=== PATIENT | male | born 1990 | race Caucasian/White ===

== ENCOUNTER 2022-08-28 20:43 | Emergency (ER) | payer MEDICAID ==
[2022-08-28] MEDS ORDERED: Lactated Ringers 1,000 ML IV ONE (21:08)
[2022-08-28 21:24] LABS: BASOPHILS ABSOLUTE AUTO 0.04 K/mm3 (0.01-0.08); BASOPHILS PERCENT AUTO 0.3 % (0.1-1.2); EOSINOPHILS ABSOLUTE AUTO 0.23 K/mm3 (0.04-0.54); HEMATOCRIT 47.6 % (40.1-51.0); HEMOGLOBIN 16.1 gm/dl (13.7-17.5); IMMATURE GRAN ABSOLUTE AUTO 0.05 K/mm3 (0.00-0.10); IMMATURE GRAN PERCENT AUTO 0.4 % (<=1.0); LYMPHOCYTES ABSOLUTE AUTO 2.15 K/mm3 (1.32-3.57); LYMPHOCYTES PERCENT AUTO 18.7 % (21.8-53.1); MEAN CORPUSCULAR HEMOGLOBIN 29.7 pg (25.7-32.2); MEAN CORPUSCULAR HGB CONC 33.8 g/dl (32.2-35.5); MEAN CORPUSCULAR VOLUME 87.7 fl (79.0-92.2); MONOCYTES ABSOLUTE AUTO 1.29 K/mm3 (0.30-0.82); MONOCYTES PERCENT AUTO 11.2 % (5.3-12.2); NEUTROPHILS ABSOLUTE AUTO 7.76 K/mm3 (1.78-5.38); NEUTROPHILS PERCENT AUTO 67.4 % (34.0-67.9); PLATELET COUNT,PLT 224 K/mm3 (163-337); RED BLOOD CELL COUNT 5.43 M/mm3 (4.63-6.08); WHITE BLOOD CELL COUNT,WBC 11.52 K/mm3 (4.23-9.07)
[2022-08-28 21:51] LABS: ALANINE AMINOTRANSFERASE,ALT 28 U/L (16-63); ALBUMIN 3.4 g/dl (3.4-5.0); ALKALINE PHOSPHATASE 51 U/L (46-116); ANION GAP 10.1 (5-15); ASPARTATE AMNIOTRANSFERASE,AST 21 U/L (15-37); BILIRUBIN TOTAL 0.4 mg/dL (0.2-1.0); BLOOD UREA NITROGEN,BUN 8 mg/dL (7-18); CALCIUM 8.2 mg/dL (8.5-10.1); CARBON DIOXIDE,CO2 28 mEq/L (21-32); CHLORIDE,CL 102 mEq/L (98-107); ESTIMATED GFR 104 mL/min (>60); GLUCOSE RANDOM 121 mg/dL (70-99); MAGNESIUM 1.4 mg/dL (1.8-2.4); POTASSIUM,K 4.1 mEq/L (3.5-5.1); PROTEIN TOTAL,TP 6.7 g/dl (6.4-8.2); SODIUM,NA 136 mEq/L (136-145); TSH 1.482 uIU/mL (0.358-3.74)
[2022-08-28 21:54] LABS: C-REACTIVE PROTEIN < 0.2 mg/dL (<1.0)
[2022-08-28 22:51] LABS: APPEARANCE,URINE CLEAR (Clear); BILIRUBIN,URINE NEGATIVE (Negative); COLOR,URINE YELLOW (Yellow); GLUCOSE,URINE NEGATIVE (Negative); KETONES,URINE NEGATIVE (Negative); LEUKOCYTE ESTERASE,URINE NEGATIVE (Negative); NITRITE,URINE NEGATIVE (Negative); OCCULT BLOOD,URINE NEGATIVE (Negative); PROTEIN,URINE NEGATIVE (Negative); UROBILINOGEN,URINE 0.2 (0.2-1.0)
[2022-08-28 23:00] LABS: EPITHELIAL CELLS,URINE NOT SEEN /hpf (0-5); RBC,URINE NOT SEEN /hpf (0-5); WBC,URINE 0-5 /hpf (0-5)
[2022-08-28 23:01] LABS: BACTERIA,URINE RARE /hpf (FEW); HYALINE CASTS,URINE 0-5 /lpf (0-5); MUCUS,URINE NOT SEEN /hpf (FEW)
[2022-08-28 23:02] LABS: BARBITURATE SCREEN,URINE NEGATIVE (CUTOFF=200); BENZODIAZEPINES SCREEN,URINE NEGATIVE (CUTOFF=150); BUPRENORPHINE SCREEN,URINE NEGATIVE (CUTOFF=10); METHADONE SCREEN, URINE NEGATIVE (CUT0FF=200); METHAMPHETAMINES SCREEN, URINE NEGATIVE (CUTOFF=500); OXYCODONE SCREEN,URINE NEGATIVE (CUT0FF=100); PROPOXYPHENE SCREEN,URINE NEGATIVE (CUTOFF=300); THC SCREEN,URINE 20 NG/ML PRESUMPTIVE POSITIVE (CUTOFF=50)
[2022-08-28 23:05] LABS: AMPHETAMINES SCREEN, URINE NEGATIVE (CUTOFF=500)
== END 2022-08-29 00:58 | disposition home or self-care (01) ==
LOC: JD.ED 20:43
DX: R55 Syncope and collapse (principal)
CPT/HCPCS: 36415; 70450; 71045; 72125; 80053; 80306; 81001; 83735; 84443; 85025; 86140; 93005; 96360; 99285; J7120; 93010; 99284